=== PATIENT | female | born 1995 | race Two or more races ===

== ENCOUNTER 2020-07-21 19:48 | Emergency (ER) | payer MEDICAID ==
[~2020-07-21] VITALS: Ht 157.5 cm; Wt 54.4 kg
[2020-07-21 19:48] VITALS: BP_SYST 108
[2020-07-21] MEDS ORDERED: NACL 0.9% 1,000 ML IV ONE (21:15)
[2020-07-21] MEDS ORDERED: KETOROLAC TROMETHAMINE 30 MG VIAL IVP ONE (21:15)
[2020-07-21 23:33] VITALS: BP_SYST 108
== END 2020-07-21 23:33 | disposition home or self-care (01) ==
LOC: SED 19:48
DX: E86.0 Dehydration (principal); F41.0 Panic disorder [episodic paroxysmal anxiety]
CPT/HCPCS: 96361; 96374; 99283; J1885; J7030